=== PATIENT | female | born 1990 | race Caucasian/White ===

== ENCOUNTER 2023-11-26 22:49 | Inpatient (IN) | payer BC, OTHER, SELFPAY ==
[2023-11-26] MEDS: LR 1000 IV (23:40)
[2023-11-26 23:45] VITALS: BP 112/66; BMI 26.6
[2023-11-27 00:07] LABS: % Basophils 0.2 % (0-2); % Eosinophils 0.4 % (0-6); % Immature Granulocytes 0.6 % (0-0.5); % Lymphocytes 17.6 % (20.5-51.1); % Monocytes 8.2 % (1.7-9.3); Absolute Immature Granulocytes 0.1 10^3/uL (0-0.05); Absolute Lymphocytes 1.6 10^3/uL (1.2-3.4); Absolute Monocytes 0.7 10^3/uL (0.1-0.6); Absolute Neutrophils 6.5 10^3/uL (1.4-6.5); Hematocrit 32.9 % (37.0-47.0); Hemoglobin 11.6 g/dL (12.0-16.0); Mean Corp Hgb Conc. 35.3 g/dL (33.0-37.0); Mean Corpuscular Hgb 29.2 pg (27.0-31.0); Mean Corpuscular Volume 82.9 fL (81.0-99.0); Mean Platelet Volume 11.2 fL (7.4-10.4); Nucleated Red Blood Cells % 0 %; Platelet Count 135 10^3/uL (130-400); Red Blood Cell Count 3.97 10^6/uL (4.20-5.40); Red Cell Dist. Width 13.1 % (11.5-14.5); White Blood Cell Count 8.9 10^3/uL (4.8-10.8)
[2023-11-27] MEDS: MORPHINE SULFATE 2 MG IV (02:37)
[2023-11-27] MEDS: LR 1000 IV ×2 (04:09→05:15)
[2023-11-27] MEDS: SUBLIMAZE 100 MCG EPIDURAL (04:15)
[2023-11-27] MEDS: FENTANYL/BUPIVACAINE 100 EPIDURAL (04:16)
[2023-11-27] MEDS: PITOCIN 30 UNITS/NSS 500 ML IV ×2 (05:02→08:25)
[2023-11-27] MEDS: SYNTHROID 75 MCG PO (08:09)
[2023-11-27] MEDS: METHERGINE INJECTION 0.2 MG IM (08:33)
[2023-11-27] MEDS: TYLENOL 650 MG PO (19:42)
[2023-11-27] MEDS: MOTRIN 600 MG PO (22:23)
[2023-11-28] MEDS: TYLENOL 650 MG PO ×2 (00:52→08:18)
[2023-11-28 06:10] LABS: Hematocrit 35.3 % (37.0-47.0); Hemoglobin 12.2 g/dL (12.0-16.0)
[2023-11-28] MEDS: SYNTHROID 75 MCG PO (06:10)
[2023-11-28] MEDS: MOTRIN 600 MG PO (08:17)
[2023-11-29 13:50] LABS: Syphilis/T. pallidum Ab Reflex Negative (Negative)
== END 2023-11-28 12:56 | disposition home or self-care (01) | DRG 807 ==
LOC: LDRP 22:49
PROVIDERS: Obstetrics & Gynecology; ADMITTING PHYSICIAN Obstetrics & Gynecology
PROC: 10E0XZZ Delivery of Products of Conception, External Approach (ICD-10-PCS; 2023-11-27)
PROC: 10907ZC Drainage of Amniotic Fluid, Therapeutic from Products of Conception, Via Natural or Artificial Opening (ICD-10-PCS; 2023-11-27)
DX: O99.284 Endocrine, nutritional and metabolic diseases complicating childbirth (principal); Z37.0 Single live birth; O99.344 Other mental disorders complicating childbirth; E06.3 Autoimmune thyroiditis; F41.9 Anxiety disorder, unspecified; Z3A.39 39 weeks gestation of pregnancy; Z79.890 Hormone replacement therapy
CPT/HCPCS: 36415; 85014; 85018; 85025; 86780; 86850; 86900; 86901